=== PATIENT | male | born 1975 | race Caucasian/White ===

== ENCOUNTER 2023-04-06 04:49 | Day surgery (SDC) | payer BC ==
[2023-04-01 16:31] VITALS: BMI 27.9
[2023-04-06] MEDS ORDERED: SIMETHICONE 40 MG/0.6 ML BOTTLE ONE (12:49)
[2023-04-06 13:07] VITALS: TEMP 98
[2023-04-06 13:25] VITALS: PULSE 58; RESP 17
[2023-04-06 13:33] VITALS: BP 109/68
== END 2023-04-06 13:30 | disposition home or self-care (01) ==
LOC: JASU-ENDO 04:49
PROVIDERS: ATTEND Internal Medicine Gastroenterology
PROC: 0DBL8ZX Excision of Transverse Colon, Via Natural or Artificial Opening Endoscopic, Diagnostic (ICD-10-PCS; 2023-04-06)
PROC: 0DBN8ZX Excision of Sigmoid Colon, Via Natural or Artificial Opening Endoscopic, Diagnostic (ICD-10-PCS; principal; 2023-04-06 12:45)
DX: Z12.11 Encounter for screening for malignant neoplasm of colon (principal); D12.3 Benign neoplasm of transverse colon; K63.5 Polyp of colon; K64.8 Other hemorrhoids; R10.32 Left lower quadrant pain
CPT/HCPCS: 88305-TC